=== PATIENT | male | born 1945 | race Caucasian/White ===

== ENCOUNTER 2020-06-12 15:16 | Emergency (ER) | payer MEDICARE, OTHER | END 2020-06-12 17:38 | disposition home or self-care (01) | LOC: CSHERS 15:16 | DX: L03.115 Cellulitis of right lower limb (principal); E11.9 Type 2 diabetes mellitus without complications; I11.0 Hypertensive heart disease with heart failure; I50.9 Heart failure, unspecified; I48.91 Unspecified atrial fibrillation; I25.2 Old myocardial infarction; F17.220 Nicotine dependence, chewing tobacco, uncomplicated; M79.89 Other specified soft tissue disorders ==